=== PATIENT | female | born 1995 ===

== ENCOUNTER 2018-06-16 15:47 | Emergency (ER) | payer BC ==
--- NOTE | 2018-06-16 15:53 | ED PDOC ---
Arrival/HPI - General Time Seen by Provider: 06/16/18 15:53 Historian: Patient - History of Present Illness Narrative History of Present Illness (Text): 06/16/18 15:53 Patient is a 22 year old female whose past medical history includes seizures, who presents to the Emergency Department complaining of seizure episode. Patient reports that while at work she felt dizzy and sat down prior to experiencing a seizure, which was witnessed. Patient is amnesic for the event, and her coworkers told her that her episode lasted for 3 minutes. She is complaining of neck and jaw pain secondary to the seizure, which as per patient she tends to experience after a seizure episode. She denies any head injuries, and notes that her last seizure was 4 days ago. Patient takes Lamictal 150mg twice daily, and denies any recent changes to medication and states she is c ompliant. In the past she saw a neurologist who recommended seeing a psychiatrist. She started getting chiropractic adjustments last week and is unsure if her recent seizures are related to her chiropractic work up. Of note as per patient she has had seizures since she was 17 years old. Patient states that she also had a seizure approximately 1 month ago and was hospitalized. Patient denies any medical history of hypertension, diabetes, or any surgeries. Of note patient moved to [place] 2-3 weeks ago and doesn't currently have a PMD. Patient denies fevers, chills, cough, shortness of breath, chest pain, dyspnea on exertion, abdominal pain, nausea, vomiting, diarrhea, urinary/bowel changes, headache, or any other complaint. Last menstrual period was 05/17/18. Neurologist: Dr.Haodong Edwards Time/Duration: Prior to Arrival Symptom Onset: Sudden Symptom Course: Improving Context: Work Past Medical History - Provider Review Nursing Documentation Reviewed: Yes Family/Social History - Physician Review Nursing Documentation Reviewed: Yes Family/Social History: No Known Family HX Allergies/Home Meds Allergies/Adverse Reactions: Allergies No Known Allergies Allergy (Verified 06/16/18 15:51) Home Medications: Home Meds Medication Instructions Recorded Confirmed Lamotrigine [Lamictal] 150 mg PO DAILY 06/16/18 06/16/18 Review of Systems - Physician Review All systems were reviewed & negative as marked: Yes - Review of Systems Constitutional: absent: Fevers, Night Sweats Respiratory: absent: SOB, Cough Cardiovascular: absent: Chest Pain, SEBASTIAN Gastrointestinal: absent: Abdominal Pain, Diarrhea, Nausea, Vomiting Genitourinary Female: absent: Urine Output Changes Musculoskeletal: Neck Pain, Other (Jaw pain) Neurological: Dizziness, Seizure. absent: Headache Physical Exam Vital Signs Reviewed: Yes Temperature: Afebrile Blood Pressure: Normal Pulse: Regular Respiratory Rate: Normal Appearance: Positive for: Well-Appearing Mental Status: Positive for: Alert and Oriented X 3 - Systems Exam Head: Present: Atraumatic, Normocephalic Pupils: Present: PERRL Extroacular Muscles: Present: EOMI Conjunctiva: Present: Normal Mouth: Present: Moist Mucous Membranes Neck: Present: Normal Range of Motion Respiratory/Chest: Present: Clear to Auscultation, Good Air Exchange. No: Respiratory Distress, Accessory Muscle Use Cardiovascular: Present: Regular Rate and Rhythm, Normal S1, S2. No: Murmurs Abdomen: No: Tenderness, Distention, Peritoneal Signs Back: Present: Normal Inspection Upper Extremity: Present: Normal Inspection. No: Cyanosis, Edema Lower Extremity: Present: Normal Inspection. No: Edema Neurological: Present: GCS=15, CN II-XII Intact, Speech Normal, Motor Func Grossly Intact, Normal Sensory Function Skin: Present: Warm, Dry, Normal Color. No: Rashes Psychiatric: Present: Alert, Oriented x 3, Normal Insight, Normal Concentration Medical Decision Making ED Course and Treatment: 06/16/18 15:53 Impression: 22 year old female complaining of experiencing a seizure episode prior to arrival while at work. Plan: -- Drug screen -- Urinalysis -- Blood work -- Labs -- Reassess and disposition Prior Visits: Notes and results from previous visits were reviewed. Progress Notes: 06/16/18 16:29 Called and discussed case with Dr.Haodong Edwards, who is the patient's neurologist. last saw her in September2017 and she underwent 2 EEG, and couldn't capture any seizure activities. He recommended to the patient to go to the hospital for visual EEG, which to his knowledge she didn't do. He couldn't ascertain that she is experiencing true seizures, and isn't recommending any changes to her medication. He recommends she follow-up with him. 06/16/18 17:17 Informed patient about the discussion with , and his recommendation to not change medication dose, and to follow-up with him. Patient wouldn't like to follow-up with him and requested a recommendation for a neurologist. 06/16/18 18:59 Patient hasn't had any seizure episodes during the course of her Emergency department visit. 06/16/18 19:03 Nurse reports POC test negative. - Lab Interpretations I have reviewed the lab results: Yes - Scribe Statement The provider has reviewed the documentation as recorded by the Scribe Bruno Bernal Provider Scribe Attestation: All medical record entries made by the Scribe were at my direction and personally dictated by me. I have reviewed the chart and agree that the record accurately reflects my personal performance of the history, physical exam, medical decision making, and the department course for this patient. I have also personally directed, reviewed, and agree with the discharge instructions and disposition. Disposition/Present on Arrival - Present on Arrival Any Indicators Present on Arrival: No History of DVT/PE: No History of Uncontrolled Diabetes: No Urinary Catheter: No History of Decub. Ulcer: No - Disposition Have Diagnosis and Disposition been Completed?: Yes Diagnosis: Seizure Disposition: HOME/ ROUTINE Disposition Time: 19:03 Patient Plan: Discharge Condition: STABLE Discharge Instructions (ExitCare): Seizures, Adult (DC) Additional Instructions: BETTY BUCHANAN, thank you for letting us take care of you today. Your provider was Caroline Lopez MD and you were treated for SEIZURE. The emergency medical care you received today was directed at your acute symptoms. If you were prescribed any medication, please fill it and take as directed. It may take several days for your symptoms to resolve. Return to the Emergency Department if your symptoms worsen, do not improve, or if you have any other problems. Please contact your doctor or call one of the physicians/clinics you have been referred to that are listed on the Patient Visit Information form that is included in your discharge packet. Bring any paperwork you were given at discharge with you along with any medications you are taking to your follow up visit. Our treatment cannot replace ongoing medical care by a primary care provider outside of the emergency department. Thank you for allowing the [facility] team to be part of your care today. Referrals: Neptali Gomez MD [Staff Provider] - Follow up with primary Forms: [employer] (Guatemalan)
[2018-06-16 16:11] VITALS: TEMP 98.2; O2SAT 100
[2018-06-16 16:42] LABS: BASO # 0.03 K/mm3 (0.0-2.0); BASO % 0.3 % (0.0-3.0); EOS # 0.2 (0.0-0.7); EOS % 1.8 % (1.5-5.0); GRAN # 6.98 (1.4-6.5); GRAN % 73.5 % (50.0-68.0); HEMOGLOBIN 12.8 g/dL (12.0-16.0); LYMPH # 1.8 (1.2-3.4); LYMPH % 18.7 % (22.0-35.0); MEAN CORPUSCULAR HEMOGLOBIN 33.5 pg (25.0-35.0); MEAN CORPUSCULAR HGB CONC 33.9 g/dl (31.0-37.0); MEAN PLATELET VOLUME 9.6 fl (7.0-11.0); MONO # 0.5 (0.1-0.6); MONO % 5.7 % (1.0-6.0); RBC 3.82 10^6/uL (3.5-6.1); RED CELL DISTRIBUTION WIDTH 12.1 % (11.5-14.5); WHITE BLOOD COUNT 9.5 10^3/ul (4.5-11.0)
[2018-06-16 16:51] LABS: ALB/GLOB RATIO 1.5 (1.1-1.8); ALBUMIN 4.5 g/dL (3.0-4.8); ALT/SGPT 46 U/L (7-56); AST/SGOT 43 U/L (14-36); BLOOD UREA NITROGEN 17 mg/dL (7-21); CALCIUM 9.3 mg/dL (8.4-10.5); GFR NON-AFRICAN AMERICAN > 60
[2018-06-16 18:48] LABS: BARBITURATES, UR NEGATIVE (NEGATIVE); BENZODIAZEPINES, UR NEGATIVE (NEGATIVE); OPIATES, UR NEGATIVE (NEGATIVE); PHENCYCLIDINE, UR NEGATIVE (NEGATIVE)
[2018-06-16 19:29] VITALS: BP 125/74; PULSE 79; RESP 18
[2018-06-17 04:39] LABS: URINE BILIRUBIN NEGATIVE (NEGATIVE); URINE BLOOD NEGATIVE (NEGATIVE); URINE GLUCOSE (UA) NEGATIVE (NEGATIVE); URINE LEUKOCYTE ESTERASE NEGATIVE Leu/uL (NEGATIVE); URINE PROTEIN NEGATIVE mg/dL (<30 mg/dL); URINE UROBILINOGEN 0.2 E.U./dL (<1 E.U./dL)
[2018-06-17 04:42] LABS: URINE APPEARANCE CLEAR (CLEAR); URINE COLOR YELLOW (YELLOW)
== END 2018-06-16 19:27 | disposition home or self-care (01) ==
LOC: ED 15:47
DX: R56.9 Unspecified convulsions (principal)
CPT/HCPCS: 80053; 81003; 85025; 99285; G0480

== ENCOUNTER 2018-08-15 13:41 | Emergency (ER) | payer BC ==
[2018-08-15 14:01] VITALS: BMI 21.9
[2018-08-15 14:05] VITALS: RESP 18
[2018-08-15] MEDS ORDERED: Sodium Chloride 0.9% 1,000 ML IV STA (14:18)
--- NOTE | 2018-08-15 14:26 | ED PDOC ---
Arrival/HPI - General Chief Complaint: Seizure Time Seen by Provider: 08/15/18 14:05 Historian: Patient - History of Present Illness Narrative History of Present Illness (Text): 08/15/18 14:23 A 22 year old female, whose past medical history includes seizures, presents to the emergency department complaining of possible seizure since earlier today. Patient reports hitting her head and finding herself on the floor which prompted her to call an Uber to the ER. Patient notes experiencing a headache and denies any tongue-biting, fever, chills, shortness of breath, chest pain, diarrhea, nausea, vomiting, urinary symptoms, back pain, neck pain, dizziness, or any other complaints. PMD: Dr. Edwards Time/Duration: 4-6 hours (earlier today) Symptom Onset: Sudden Activities at Onset: Light Context: Home Past Medical History - Provider Review Nursing Documentation Reviewed: Yes - Cardiac Hx Cardiac Disorders: No - Pulmonary Hx Respiratory Disorders: No - Neurological Hx Neurological Disorder: Yes Hx Migraine: Yes Hx Seizures: Yes - HEENT Hx HEENT Disorder: No - Renal Hx Renal Disorder: No - Endocrine/Metabolic Hx Endocrine Disorders: No - Hematological/Oncological Hx Blood Disorders: No - Integumentary Hx Dermatological Disorder: No - Musculoskeletal/Rheumatological Hx Musculoskeletal Disorders: No - Gastrointestinal Hx Gastrointestinal Disorders: No - Genitourinary/Gynecological Hx Genitourinary Disorders: No - Psychiatric Hx Psychophysiologic Disorder: No Hx Substance Use: No Family/Social History - Physician Review Nursing Documentation Reviewed: Yes Family/Social History: No Known Family HX Smoking Status: Never Smoked Hx Alcohol Use: No Hx Substance Use: No Allergies/Home Meds Allergies/Adverse Reactions: Allergies No Known Allergies Allergy (Verified 08/15/18 14:01) Home Medications: Home Meds Medication Instructions Recorded Confirmed Lamotrigine [Lamictal] 150 mg PO DAILY 06/16/18 08/15/18 Review of Systems - Physician Review All systems were reviewed & negative as marked: Yes - Review of Systems Constitutional: absent: Fevers, Night Sweats Respiratory: absent: SOB Cardiovascular: absent: Chest Pain Gastrointestinal: absent: Diarrhea, Nausea, Vomiting Genitourinary Female: absent: Urine Output Changes Musculoskeletal: absent: Back Pain, Neck Pain Neurological: Headache. absent: Dizziness, Other (no tongue-biting) Physical Exam Vital Signs Reviewed: Yes Vital Signs Temp Pulse Resp BP Pulse Ox 08/15/18 14:02 97.7 F 66 18 105/66 99 Temperature: Afebrile Blood Pressure: Normal Pulse: Regular Respiratory Rate: Normal Appearance: Positive for: Well-Appearing, Non-Toxic Pain Distress: None Mental Status: Positive for: Alert and Oriented X 3 - Systems Exam Head: Present: Atraumatic, Normocephalic Pupils: Present: PERRL Extroacular Muscles: Present: EOMI Conjunctiva: Present: Normal Mouth: Present: Moist Mucous Membranes Neck: Present: Normal Range of Motion Respiratory/Chest: Present: Clear to Auscultation, Good Air Exchange. No: Respiratory Distress, Accessory Muscle Use Cardiovascular: Present: Regular Rate and Rhythm, Normal S1, S2. No: Murmurs Abdomen: No: Tenderness, Distention, Peritoneal Signs Back: Present: Normal Inspection Upper Extremity: Present: Normal Inspection. No: Cyanosis, Edema Lower Extremity: Present: Normal Inspection. No: Edema Neurological: Present: GCS=15, CN II-XII Intact, Speech Normal Skin: Present: Warm, Dry, Normal Color. No: Rashes Psychiatric: Present: Alert, Oriented x 3, Normal Insight, Normal Concentration Medical Decision Making ED Course and Treatment: 08/15/18 14:28 Impression: 22 year old female presenting to the emergency department for possible seizure. Plan: -- Head CT without contrast -- EKG -- Labs -- CBC -- COAGs -- Tylenol -- IV fluids -- HCG, qualitative urine -- Urinalysis -- Reassess and disposition Prior Visits: Notes and results from previous visits were reviewed. Progress Notes: 08/15/18 14:30 EKG: Ordered, reviewed, and independently interpreted the EKG. Rate : 60 BPM Rhythm : NSR Interpretation : No ST-wave changes. - RAD Interpretation Radiology Orders: 08/15/18 14:17 HEAD W/O CONTRAST [CT] Stat - Medication Orders Current Medication Orders: Sodium Chloride (Sodium Chloride 0.9%) 1,000 mls @ 999 mls/hr IV .Q1H1M STA Stop: 08/15/18 15:18 Discontinued Medications Acetaminophen (Tylenol 325mg Tab) 975 mg PO STAT STA Stop: 08/15/18 14:19 - Scribe Statement The provider has reviewed the documentation as recorded by the Scribe Jovita Goins All medical record entries made by the Scribe were at my direction and personally dictated by me. I have reviewed the chart and agree that the record accurately reflects my personal performance of the history, physical exam, medical decision making, and the department course for this patient. I have also personally directed, reviewed, and agree with the discharge instructions and disposition. Disposition/Present on Arrival - Present on Arrival History of DVT/PE: No History of Uncontrolled Diabetes: No Urinary Catheter: No History of Decub. Ulcer: No History Surgical Site Infection Following: None - Disposition Diagnosis: Seizure Disposition: HOME/ ROUTINE Patient Problems: Current Active Problems Problem Status Onset Seizure Acute Condition: STABLE Discharge Instructions (ExitCare): Seizures, Adult (DC) Additional Instructions: follow up with your doctor/clinic. return to er with worsening symptoms or concerns. Referrals: [facility] [Outside] - Follow up with primary [facility] [Outside] - Follow up with primary Neptali Gomez MD [Staff Provider] - Follow up with primary David Edwards MD [Primary Care Provider] - Follow up with primary Forms: [employer] (Kazakh)
[2018-08-15 14:39] LABS: BASO # 0.04 K/mm3 (0.0-2.0); BASO % 0.3 % (0.0-3.0); EOS # 0.5 (0.0-0.7); EOS % 4.4 % (1.5-5.0); GRAN # 7.8 (1.4-6.5); GRAN % 66.4 % (50.0-68.0); HEMOGLOBIN 12.7 g/dL (12.0-16.0); LYMPH # 2.7 (1.2-3.4); LYMPH % 23.1 % (22.0-35.0); MEAN CELL VOLUME 99.2 fl (80.0-105.0); MEAN CORPUSCULAR HEMOGLOBIN 33.6 pg (25.0-35.0); MEAN CORPUSCULAR HGB CONC 33.9 g/dl (31.0-37.0); MEAN PLATELET VOLUME 9.2 fl (7.0-11.0); MONO # 0.7 (0.1-0.6); MONO % 5.8 % (1.0-6.0); RBC 3.78 10^6/uL (3.5-6.1); RED CELL DISTRIBUTION WIDTH 12.2 % (11.5-14.5); WHITE BLOOD COUNT 11.8 10^3/uL (4.5-11.0)
[2018-08-15 14:44] LABS: INR 1.09; PARTIAL THROMBOPLASTIN TIME 30.6 Seconds (25.1-36.5); PROTHROMBIN TIME 12.4 SECONDS (9.4-12.5)
[2018-08-15 14:46] LABS: ALB/GLOB RATIO 1.3 (1.1-1.8); ALBUMIN 3.7 g/dL (3.0-4.8); ALT/SGPT 24 U/L (7-56); AST/SGOT 22 U/L (14-36); BLOOD UREA NITROGEN 16 mg/dL (7-21); GFR NON-AFRICAN AMERICAN > 60
[2018-08-15 15:43] LABS: PH,URINE 6.5 (4.7-8.0); URINE APPEARANCE CLEAR (CLEAR); URINE BILIRUBIN NEGATIVE (NEGATIVE); URINE BLOOD TRACE-INTACT (NEGATIVE); URINE COLOR LIGHT YELLOW (YELLOW); URINE GLUCOSE (UA) NEGATIVE (NEGATIVE); URINE LEUKOCYTE ESTERASE NEGATIVE Leu/uL (NEGATIVE); URINE PROTEIN NEGATIVE mg/dL (<30 mg/dL); URINE UROBILINOGEN 0.2 E.U./dL (<1 E.U./dL)
[2018-08-15 15:45] LABS: HCG,QUALITATIVE URINE NEGATIVE (NEGATIVE)
[2018-08-15 15:47] LABS: URINE EPITHELIAL CELLS 0 - 2 /hpf (0-5); URINE WBC NEGATIVE /hpf (0-6)
[2018-08-15 16:00] LABS: BARBITURATES, UR NEGATIVE (NEGATIVE); BENZODIAZEPINES, UR NEGATIVE (NEGATIVE); OPIATES, UR NEGATIVE (NEGATIVE); PHENCYCLIDINE, UR NEGATIVE (NEGATIVE)
--- NOTE | 2018-08-15 16:16 | CT ---
Date of service: 08/15/2018 PROCEDURE: CT HEAD WITHOUT CONTRAST. HISTORY: seizure COMPARISON: None available. TECHNIQUE: Axial computed tomography images were obtained through the head/brain without intravenous contrast. Radiation dose: Total exam DLP = 904.94 mGy-cm. This CT exam was performed using one or more of the following dose reduction techniques: Automated exposure control, adjustment of the mA and/or kV according to patient size, and/or use of iterative reconstruction technique. FINDINGS: HEMORRHAGE: No intracranial hemorrhage. BRAIN: No mass effect or edema. No atrophy or chronic microvascular ischemic changes. VENTRICLES: Unremarkable. No hydrocephalus. CALVARIUM: Unremarkable. PARANASAL SINUSES: Unremarkable as visualized. No significant inflammatory changes. MASTOID AIR CELLS: Unremarkable as visualized. No inflammatory changes. OTHER FINDINGS: None. IMPRESSION: Normal CT of the Head.
[2018-08-15 17:39] VITALS: BP 104/64; PULSE 68; TEMP 98.1; O2SAT 100
--- NOTE | 2018-08-15 18:42 | CARD ---
APPROVED REPORT Date of service: 08/15/2018 EKG Measurement Heart [id number] <Conclusion> Normal sinus rhythm Normal ECG
== END 2018-08-15 17:30 | disposition home or self-care (01) ==
LOC: ED 13:41
DX: R56.9 Unspecified convulsions (principal)
CPT/HCPCS: 70450; 80053; 81001; 83735; 84703; 85025; 85610; 85730; 93005; 96360; 99285; G0480; J7030

== ENCOUNTER 2018-10-31 14:12 | Emergency (ER) | payer BC ==
[2018-10-31 14:13] VITALS: BMI 21.9
[2018-10-31 14:23] VITALS: RESP 18; TEMP 99.7
--- NOTE | 2018-10-31 14:46 | ED PDOC ---
Arrival/HPI - General Chief Complaint: Seizure Time Seen by Provider: 10/31/18 14:18 Historian: Patient - History of Present Illness Narrative History of Present Illness (Text): 10/31/18 14:46 A 23 year old female, whose past medical history includes seizures, presents to the emergency department s/p seizure episode form earlier today. Patient reports she was alone in the bathroom when episode occurred and lost consciousness from the seizure. Patient notes she woke up with left sided facial pain and a headache. Patient denies any fever, chills, shortness of breath, chest pain, dizziness, or any other complaints. PMD: Dr. Horta Time/Duration: Other (earlier today) Symptom Onset: Sudden Activities at Onset: Light Context: Home Past Medical History - Provider Review Nursing Documentation Reviewed: Yes - Infectious Disease Hx of Infectious Diseases: None - Reproductive Menopause: No - Cardiac Hx Cardiac Disorders: No - Pulmonary Hx Respiratory Disorders: No - Neurological Hx Neurological Disorder: Yes Hx Migraine: Yes Hx Seizures: Yes - HEENT Hx HEENT Disorder: No - Renal Hx Renal Disorder: No - Endocrine/Metabolic Hx Endocrine Disorders: No - Hematological/Oncological Hx Blood Disorders: No - Integumentary Hx Dermatological Disorder: No - Musculoskeletal/Rheumatological Hx Musculoskeletal Disorders: No - Gastrointestinal Hx Gastrointestinal Disorders: No - Genitourinary/Gynecological Hx Genitourinary Disorders: No - Psychiatric Hx Psychophysiologic Disorder: No Hx Substance Use: No Family/Social History - Physician Review Nursing Documentation Reviewed: Yes Family/Social History: No Known Family HX Smoking Status: Never Smoked Hx Alcohol Use: No Hx Substance Use: No Allergies/Home Meds Allergies/Adverse Reactions: Allergies No Known Allergies Allergy (Verified 08/15/18 14:01) Home Medications: Home Meds Medication Instructions Recorded Confirmed Lamotrigine [Lamictal] 150 mg PO BID 06/16/18 10/31/18 Escitalopram Oxalate [Lexapro] 5 mg PO DAILY 10/31/18 10/31/18 Review of Systems - Physician Review All systems were reviewed & negative as marked: Yes - Review of Systems Constitutional: absent: Fevers Respiratory: absent: SOB Cardiovascular: absent: Chest Pain Musculoskeletal: Other (facial pain) Neurological: Headache. absent: Dizziness Physical Exam Vital Signs Reviewed: Yes Vital Signs Temp Pulse Resp BP Pulse Ox 10/31/18 14:17 99.7 F H 94 H 18 113/74 97 Temperature: Febrile Blood Pressure: Normal Pulse: Tachycardic Respiratory Rate: Normal Appearance: Positive for: Well-Appearing, Non-Toxic Mental Status: Positive for: Alert and Oriented X 3 - Systems Exam Head: Present: Atraumatic, Normocephalic Pupils: Present: PERRL Extroacular Muscles: Present: EOMI Conjunctiva: Present: Normal Respiratory/Chest: Present: Clear to Auscultation, Good Air Exchange. No: Resp iratory Distress, Accessory Muscle Use Cardiovascular: Present: Regular Rate and Rhythm, Normal S1, S2. No: Murmurs Abdomen: No: Tenderness, Distention, Peritoneal Signs Back: Present: Other (mild tenderness to left posterior scapular area) Upper Extremity: Present: Normal Inspection. No: Cyanosis, Edema Lower Extremity: Present: Normal Inspection. No: Edema Neurological: Present: GCS=15, CN II-XII Intact, Speech Normal Skin: Present: Warm, Dry, Normal Color. No: Rashes Psychiatric: Present: Alert, Oriented x 3, Normal Insight, Normal Concentration Medical Decision Making ED Course and Treatment: 10/31/18 14:52 Impression: 23 year old female presenting to the emergency room s/p seizure episode. Plan: -- CT of the maxillofacial without contrast -- Head CT without contrast -- Labs -- CBC -- Reassess and disposition Prior Visits: Notes and results from previous visits were reviewed. Progress Notes: 10/31/18 17:33 patient was seen for breakthrough seizure, fall to ground with suspected facial injury. CT's negative, negative nexus criteria, labs ok, patient is at baseline mental status. Patient states she was just started on a second antiepileptic that she did not get a chance to fill yet. Patient mentating appropriately and stable for discharge. - RAD Interpretation Narrative RAD Interpretations (Text): 10/31/18 17:37 Procedure: Head CT Dictator: Cee Antonio Impression: No acute intracranial pathology identified. Procedure: Maxillofacial CT Dictator: Cee Antonio Impression: No acute findings identified. Woodworker Helper: Radiologist - Scribe Statement The provider has reviewed the documentation as recorded by the Scribconchita Goins All medical record entries made by the Scribe were at my direction and personally dictated by me. I have reviewed the chart and agree that the record accurately reflects my personal performance of the history, physical exam, medical decision making, and the department course for this patient. I have also personally directed, reviewed, and agree with the discharge instructions and disposition. Disposition/Present on Arrival - Present on Arrival Any Indicators Present on Arrival: No History of DVT/PE: No History of Uncontrolled Diabetes: No Urinary Catheter: No History of Decub. Ulcer: No History Surgical Site Infection Following: None - Disposition Have Diagnosis and Disposition been Completed?: Yes Diagnosis: Breakthrough seizure Disposition: HOME/ ROUTINE Disposition Time: 17:35 Patient Plan: Discharge Patient Problems: Current Active Problems Problem Status Onset Breakthrough seizure Acute Condition: STABLE Discharge Instructions (ExitCare): Seizures, Adult (DC), Closed Head Injury (DC) Additional Instructions: follow up with your neurologist as soon as possible. Referrals: Usama Horta MD [Primary Care Provider] - Follow up with primary Neptali Gomez MD [Staff Provider] - Follow up with primary Forms: [employer] (Spanish)
[2018-10-31 15:36] LABS: BASO # 0.03 K/mm3 (0.0-2.0); BASO % 0.3 % (0.0-3.0); EOS # 0.3 (0.0-0.7); EOS % 2.8 % (1.5-5.0); HEMOGLOBIN 13.4 g/dL (12.0-16.0); LYMPH # 2.5 (1.2-3.4); LYMPH % 24.9 % (22.0-35.0); MEAN CELL VOLUME 99.7 fl (80.0-105.0); MEAN CORPUSCULAR HEMOGLOBIN 33.7 pg (25.0-35.0); MEAN CORPUSCULAR HGB CONC 33.8 g/dl (31.0-37.0); MEAN PLATELET VOLUME 9.4 fl (7.0-11.0); MONO # 0.4 (0.1-0.6); MONO % 4.4 % (1.0-6.0); RBC 3.98 10^6/uL (3.5-6.1); RED CELL DISTRIBUTION WIDTH 11.8 % (11.5-14.5); WHITE BLOOD COUNT 9.9 10^3/uL (4.5-11.0)
[2018-10-31 15:39] LABS: ALB/GLOB RATIO 1.4 (1.1-1.8); ALBUMIN 4.4 g/dL (3.0-4.8); ALT/SGPT 9 U/L (7-56); AST/SGOT 20 U/L (14-36); BLOOD UREA NITROGEN 19 mg/dL (7-21); CALCIUM 9.5 mg/dL (8.4-10.5); GFR NON-AFRICAN AMERICAN > 60
--- NOTE | 2018-10-31 17:11 | CT ---
Date of service: 10/31/2018 PROCEDURE: CT HEAD WITHOUT CONTRAST. HISTORY: trauma COMPARISON: None available. TECHNIQUE: Axial computed tomography images were obtained through the head/brain without intravenous contrast. Radiation dose: Total exam DLP = 785.43 mGy-cm. This CT exam was performed using one or more of the following dose reduction techniques: Automated exposure control, adjustment of the mA and/or kV according to patient size, and/or use of iterative reconstruction technique. FINDINGS: HEMORRHAGE: No intracranial hemorrhage. BRAIN: No mass effect or edema. No atrophy or chronic microvascular ischemic changes. VENTRICLES: No hydrocephalus. CALVARIUM: Unremarkable. PARANASAL SINUSES: Unremarkable as visualized. No significant inflammatory changes. MASTOID AIR CELLS: Unremarkable as visualized. No inflammatory changes. OTHER FINDINGS: None. IMPRESSION: No acute intracranial pathology identified.
--- NOTE | 2018-10-31 17:22 | CT ---
Date of service:10/31/2018 CT maxillofacial bones without IV contrast Indication: trauma Comparison: Noncontrast head performed 10/31/18, noncontrast head CT performed 08/15/18 Technique: Axial computed tomography images were obtained of the maxillofacial bones without the use of intravenous contrast. Coronal and sagittal reformatted images were generated and reviewed. This CT exam was performed using 1 or more of the following dose reduction techniques: Automated exposure control, adjustment of the MAA and/or kV according to patient size, and/or use of iterative reconstruction technique. Radiation dose: Total exam DLP = 730.88 mGy-cm. Findings: The facial bones appear unremarkable without acute displaced fracture. The orbits appear unremarkable. The temporomandibular joints appear located. The mastoid air cells appear clear. The paranasal sinuses appear clear. The visualized brain appears unremarkable. The soft tissues appear unremarkable. Impression: No acute findings identified. See above.
[2018-10-31 17:57] VITALS: BP 125/63; PULSE 65; O2SAT 100
== END 2018-10-31 18:01 | disposition home or self-care (01) ==
LOC: ED 14:12
DX: R56.9 Unspecified convulsions (principal)

== ENCOUNTER 2018-11-06 15:07 | Outpatient (CLI) | payer BC | END 2018-11-06 15:08 | disposition home or self-care (01) | LOC: RAD 15:07 ==

== ENCOUNTER 2019-01-26 15:45 | Emergency (ER) | payer BC ==
[2019-01-26 15:46] VITALS: BMI 21.9
[2019-01-26 16:07] VITALS: TEMP 98.1; O2SAT 98
[2019-01-26 16:23] LABS: URINE BILIRUBIN NEGATIVE (NEGATIVE); URINE BLOOD NEGATIVE (NEGATIVE); URINE GLUCOSE (UA) NEGATIVE (NEGATIVE); URINE LEUKOCYTE ESTERASE NEGATIVE Leu/uL (NEGATIVE); URINE PROTEIN NEGATIVE mg/dL (<30 mg/dL); URINE UROBILINOGEN 0.2 E.U./dL (<1 E.U./dL)
[2019-01-26 16:25] LABS: URINE APPEARANCE CLEAR (CLEAR); URINE COLOR YELLOW (YELLOW)
[2019-01-26 16:30] LABS: BASO # 0.02 K/mm3 (0.0-2.0); BASO % 0.2 % (0.0-3.0); EOS # 0.5 (0.0-0.7); EOS % 4.3 % (1.5-5.0); HEMOGLOBIN 13.7 g/dL (12.0-16.0); LYMPH % 17.4 % (22.0-35.0); MEAN CELL VOLUME 98.3 fl (80.0-105.0); MEAN CORPUSCULAR HEMOGLOBIN 33.2 pg (25.0-35.0); MEAN CORPUSCULAR HGB CONC 33.7 g/dl (31.0-37.0); MEAN PLATELET VOLUME 9.3 fl (7.0-11.0); MONO # 0.5 (0.1-0.6); MONO % 4.3 % (1.0-6.0); RBC 4.13 10^6/uL (3.5-6.1); RED CELL DISTRIBUTION WIDTH 11.9 % (11.5-14.5); WHITE BLOOD COUNT 11.6 10^3/uL (4.5-11.0)
--- NOTE | 2019-01-26 16:43 | CT ---
Date of service: 01/26/2019 PROCEDURE: CT HEAD WITHOUT CONTRAST. HISTORY: r/o ICH COMPARISON: CT head dated 10/31/2018. TECHNIQUE: Axial computed tomography images were obtained through the head/brain without intravenous contrast. Radiation dose: Total exam DLP = 959.03 mGy-cm. This CT exam was performed using one or more of the following dose reduction techniques: Automated exposure control, adjustment of the mA and/or kV according to patient size, and/or use of iterative reconstruction technique. FINDINGS: HEMORRHAGE: No intracranial hemorrhage. BRAIN: No mass effect or edema. No atrophy or chronic microvascular ischemic changes. VENTRICLES: Unremarkable. No hydrocephalus. CALVARIUM: Unremarkable. PARANASAL SINUSES: Unremarkable as visualized. No significant inflammatory changes. MASTOID AIR CELLS: Unremarkable as visualized. No inflammatory changes. OTHER FINDINGS: None. IMPRESSION: No acute intracranial pathology.
--- NOTE | 2019-01-26 16:47 | ED PDOC ---
Arrival/HPI - General Chief Complaint: Seizure Time Seen by Provider: 01/26/19 16:02 Historian: Patient, Partner - History of Present Illness Narrative History of Present Illness (Text): 01/26/19 16:46 23 year old F with pmh of epilepsy presents complaining of seizure earlier today in her sleep. Seizure witnessed by girlfriend, who noted patient mildly shaking in her sleep. Patient denies falling off bed, fever, headache, tongue bite or urinary incompetence. Patient is complaint with seizure medication. Patient denies any further complaints. Time/Duration: 1-3 hours Symptom Onset: Sudden Symptom Course: Unchanged Activities at Onset: Light Context: Home Past Medical History - Provider Review Nursing Documentation Reviewed: Yes - Infectious Disease Hx of Infectious Diseases: None - Cardiac Hx Cardiac Disorders: No - Pulmonary Hx Respiratory Disorders: No - Neurological Hx Neurological Disorder: Yes Hx Migraine: Yes Hx Seizures: Yes - HEENT Hx HEENT Disorder: No - Renal Hx Renal Disorder: No - Endocrine/Metabolic Hx Endocrine Disorders: No - Hematological/Oncological Hx Blood Disorders: No - Integumentary Hx Dermatological Disorder: No - Musculoskeletal/Rheumatological Hx Musculoskeletal Disorders: No - Gastrointestinal Hx Gastrointestinal Disorders: No - Genitourinary/Gynecological Hx Genitourinary Disorders: No - Psychiatric Hx Psychophysiologic Disorder: No Hx Substance Use: Yes Family/Social History - Physician Review Nursing Documentation Reviewed: Yes Family/Social History: Unknown Family HX Smoking Status: Never Smoked Hx Alcohol Use: No Hx Substance Use: Yes Substance used: marijuana Allergies/Home Meds Allergies/Adverse Reactions: Allergies No Known Allergies Allergy (Verified 01/26/19 16:07) Home Medications: Home Meds Medication Instructions Recorded Confirmed Eslicarbazepine Acetate [Aptiom] 400 mg PO DAILY 01/26/19 01/26/19 Review of Systems - Physician Review All systems were reviewed & negative as marked: Yes - Review of Systems Constitutional: absent: Fevers ENT: absent: Sore Throat, Rhinorrhea, Epistaxis Respiratory: absent: SOB, Cough, Wheezing Cardiovascular: absent: Chest Pain, Palpitations, Edema Gastrointestinal: absent: Abdominal Pain, Diarrhea, Nausea, Vomiting, Hematochezia, Hematemesis, Anorexia Genitourinary Female: absent: Dysuria, Hematuria Musculoskeletal: absent: Arthralgias, Back Pain, Myalgias Skin: absent: Rash, Abscess Neurological: Seizure. absent: Headache, Dizziness, Focal Weakness, Facial Dr oop Physical Exam Vital Signs Reviewed: Yes Vital Signs Temp Pulse Resp BP Pulse Ox 01/26/19 16:02 98.1 F 96 H 17 116/72 98 Temperature: Afebrile Blood Pressure: Normal Pulse: Tachycardic Respiratory Rate: Normal Appearance: Positive for: Well-Appearing, Non-Toxic, Comfortable Pain Distress: Mild Mental Status: Positive for: Alert and Oriented X 3 - Systems Exam Head: Present: Atraumatic, Normocephalic Pupils: Present: PERRL Extroacular Muscles: Present: EOMI Conjunctiva: Present: Normal Mouth: Present: Moist Mucous Membranes Neck: Present: Normal Range of Motion Respiratory/Chest: Present: Clear to Auscultation, Good Air Exchange. No: Respiratory Distress, Accessory Muscle Use Cardiovascular: Present: Regular Rate and Rhythm, Normal S1, S2. No: Murmurs Abdomen: No: Tenderness, Distention, Peritoneal Signs Back: Present: Normal Inspection Upper Extremity: Present: Normal Inspection. No: Cyanosis, Edema Lower Extremity: Present: Normal Inspection. No: Edema Neurological: Present: GCS=15, CN II-XII Intact, Speech Normal Skin: Present: Warm, Dry, Normal Color. No: Rashes Psychiatric: Present: Alert, Oriented x 3, Normal Insight, Normal Concentration Medical Decision Making ED Course and Treatment: 01/26/19 16:46 Impression: 23 year old F presents complaining of seizure earlier today in her sleep Plan: -- Head Ct -- Reassess and disposition Prior Visits: Notes and results from previous visits were reviewed. Progress Notes: Head CT No acute intracranial pathology Patient is stable in the ER, will discharge. Advised patient to follow up with her neurologist tomorrow morning. - Lab Interpretations Lab Results: Urine Color Yellow (YELLOW) 01/26/19 16:15 Urine Appearance Clear (CLEAR) 01/26/19 16:15 Urine pH 7.0 (4.7-8.0) 01/26/19 16:15 Ur Specific [place] 1.015 (1.005-1.035) 01/26/19 16:15 Urine Protein Negative mg/dL (<30 mg/dL) 01/26/19 16:15 Urine Glucose (UA) Negative mg/dL (NEGATIVE) 01/26/19 16:15 Urine Ketones Negative mg/dL (NEGATIVE) 01/26/19 16:15 Urine Blood Negative (NEGATIVE) 01/26/19 16:15 Urine Nitrate Negative (NEGATIVE) 01/26/19 16:15 Urine Bilirubin Negative (NEGATIVE) 01/26/19 16:15 Urine Urobilinogen 0.2 E.U./dL (<1 E.U./dL) 01/26/19 16:15 Ur Leukocyte Esterase Negative Eliane/uL (NEGATIVE) 01/26/19 16:15 - RAD Interpretation Radiology Orders: 01/26/19 16:12 HEAD W/O CONTRAST [CT] Stat - Scribe Statement The provider has reviewed the documentation as recorded by the J Carlos Kay All medical record entries made by the Scribe were at my direction and personally dictated by me. I have reviewed the chart and agree that the record accurately reflects my personal performance of the history, physical exam, medical decision making, and the department course for this patient. I have also personally directed, reviewed, and agree with the discharge instructions and disposition. Disposition/Present on Arrival - Present on Arrival Any Indicators Present on Arrival: No History of DVT/PE: No History of Uncontrolled Diabetes: No Urinary Catheter: No History of Decub. Ulcer: No History Surgical Site Infection Following: None - Disposition Have Diagnosis and Disposition been Completed?: Yes Diagnosis: Epilepsy Disposition: HOME/ ROUTINE Disposition Time: 17:00 Condition: GOOD Discharge Instructions (ExitCare): Seizures, Adult (DC) Additional Instructions: BETTY BUCHANAN, thank you for letting us take care of you today. The emergency medical care you received today was directed at your acute symptoms. If you were prescribed any medication, please fill it and take as directed. It may take several days for your symptoms to resolve. Return to the Emergency Department if your symptoms worsen, do not improve, or if you have any other problems. Please contact your doctor or call one of the physicians/clinics you have been referred to that are listed on the Patient Visit Information form that is included in your discharge packet. Bring any paperwork you were given at discharge with you along with any medications you are taking to your follow up visit. Our treatment cannot replace ongoing medical care by a primary care provider outside of the emergency department. Thank you for allowing the [facility] team to be part of your care today. Please continue taking your medication as prescribed and follow up with your neurologist tomorrow. Return to the emergency room if you have any concerns. Referrals: FAMILY PROVIDER,NO [Primary Care Provider] - Follow up with primary Forms: [employer] ([employer])
[2019-01-26 17:03] LABS: ALB/GLOB RATIO 1.4 (1.1-1.8); ALBUMIN 4.2 g/dL (3.0-4.8); ALT/SGPT 23 U/L (7-56); AST/SGOT 25 U/L (14-36); BLOOD UREA NITROGEN 9 mg/dL (7-21); CALCIUM 9.3 mg/dL (8.4-10.5); GFR NON-AFRICAN AMERICAN > 60
[2019-01-26 17:19] VITALS: BP 118/73; PULSE 86; RESP 18
== END 2019-01-26 17:36 | disposition home or self-care (01) ==
LOC: ED 15:45
DX: G40.909 Epilepsy, unspecified, not intractable, without status epilepticus (principal)